=== PATIENT | female | born 1995 | race Caucasian/White ===

== ENCOUNTER 2024-06-12 04:28 | Inpatient (IN) ==
[2024-06-12] MEDS ORDERED: LIDOCAINE 1% LOCAL 20 ML VIAL INFIL PRN (05:14)
[2024-06-12] MEDS ORDERED: OXYTOCIN 30 UNITS/NSS 30 UNITS/500 ML BAG IV PRN (05:14)
[2024-06-12 05:58] LABS: Hematocrit (blood only) 33.4 % (37.0-47.0); Mean Corpuscular Hemoglobin 30.1 pg (25.0-34.0); Mean Corpuscular Hgb Conc 32.9 g/dL (32.0-36.0); Mean Corpuscular Volume 91.3 fL (80.0-100.0); Mean Platelet Volume 9.4 fL (9.4-12.4); Platelet Count 179 K/uL (130-400); RDW Coefficient of Variation 13.6 % (11.5-14.5); Red Blood Count 3.66 M/uL (4.20-5.40); White Blood Count 8.36 K/ul (4.8-10.8)
--- NOTE | 2024-06-12 08:10 | Anesthesiology Consultation ---
Date of Service June 12, 2024 Assessment & Plan (1) Encounter for pre-operative examination: Chart Review Chart Review: Acceptable Risk for Labor Epidural History Height/Weight Height: 5 ft 6 in Weight: 90.718 kg Allergies Allergy/AdvReac Type Severity Reaction Status Date / Time No Known Allergies Allergy Verified 06/12/24 04:56 Medications Home Medications Medication Instructions Recorded Confirmed Last Taken 21-iron fu-folic acid 1 tab PO DAILY 11/12/23 06/12/24 06/11/24 [ Complete] acetone (urine) test (Ketone Urine #50 ea 12/30/23 06/07/24 Unknown Test strips) blood sugar diagnostic (OneTouch #150 ea 12/30/23 06/07/24 Unknown Verio test strips) blood-glucose meter (OneTouch #1 ea 12/30/23 06/07/24 Unknown Verio Reflect Meter) lancets 33 gauge (OneTouch Delica #150 ea 12/30/23 06/07/24 Unknown Plus Lancet) Past Medical History Medical History (Updated 06/12/24 @ 08:11 by Jasper Jha MD) Gestational diabetes No significant past medical history Varicella vaccination Past Family History Family History Aunt Breast cancer Diabetes Denies family history of Ovarian cancer Colorectal cancer Past Surgical History Surgical History (Updated 06/12/24 @ 08:11 by Jasper Jha MD) No significant past surgical history Social History Smoking Status: Never smoker Do You Dip or Chew Tobacco: No Hx Alcohol Use: No Hx Substance Use: No Physical Exam Vital Signs Last Vital Signs Temp 36.8 C 06/12/24 07:10 Pulse 83 06/12/24 07:06 Resp 18 06/12/24 07:10 BP 123/72 06/12/24 07:06 Testing Laboratory Results 06/12/24 05:31
[2024-06-12] MEDS: LACTATED RINGER'S 1,000 ML IV PRN (08:12)
--- NOTE | 2024-06-12 08:12 | Labor Progress Brief Note ---
Date of Service June 12, 2024 Subjective Has been ambulating, much more intense contractions now. Tearful because she wants an epidural and feels like this means "defeat." Assessment & Plan (1) Normal labor: Plan: Epidural requested. Laboring spontaneously after SROM. Counseled/comforted about normality of requesting anesthesia for delivery and that this does not diminish the achievement of having the baby at all. Admission and Anticipated Discharge Date Admission Date: June 12, 2024 Physical Exam Genitourinary: 8/100/0 Clear fluid FHT Cat 1 [place] Q2m Results & Data Vital Signs (Past 12 Hours) Vital Signs Temp Pulse Resp BP 06/12/24 07:10 98.2 F 18 06/12/24 07:06 83 123/72 06/12/24 04:57 98.8 F 77 18 124/74 Coding Level of Care Code None Diagnoses Normal labor O80; Z37.9
[2024-06-12] MEDS: fentaNYL citrate PF 100 MCG/2 ML VIAL ONE (08:34)
[2024-06-12] MEDS: LIDOCAINE 2%/EPINEPHRINE 1:200,000 20 ML PF ONE (08:34)
[2024-06-12] MEDS: BUPIVACAINE 0.25% PF 30 ML VIAL ONE (08:34)
[2024-06-12] MEDS: fentANYL 2 MCG/ML BUPIVacaine 0.125%-NSS 100ML BAG ONE (08:35)
[2024-06-12] MEDS ORDERED: ePHEDrine sulfate 50 MG/ML AMP IV PRN (08:35)
[2024-06-12] MEDS ORDERED: NALOXONE HCL 1 MG in SODIUM CHLORIDE 0.9% 1,000 ML IV PRN (08:35)
[2024-06-12] MEDS ORDERED: fentaNYL citrate PF 100 MCG/2 ML VIAL EPI PRN (08:35)
[2024-06-12] MEDS ORDERED: ONDANSETRON INJ 2 MG/ML 2 ML VIAL IV PRN (08:35)
[2024-06-12] MEDS ORDERED: ROPIVACAINE 0.5% PF 5 MG/ML 20 ML VIAL EPI PRN (08:35)
[2024-06-12] MEDS ORDERED: BUPIVACAINE 0.25% PF 30 ML VIAL EPI PRN (08:35)
[2024-06-12] MEDS ORDERED: LIDOCAINE 2% MPF LOCAL 5 ML VIAL EPI PRN (08:35)
[2024-06-12] MEDS ORDERED: SODIUM CHLORIDE 0.9% PF INJ 10 ML VIAL EPI PRN (08:35)
[2024-06-12] MEDS ORDERED: fentANYL 2 MCG/ML BUPIVacaine 0.125%-NSS 100ML BAG EPI PRN (08:35)
[2024-06-12] MEDS ORDERED: NALOXONE HCL 0.4 MG/1 ML VIAL/CARP IV PRN (08:35)
--- NOTE | 2024-06-12 09:19 | Communication Note ---
Date of Service: June 12, 2024 Pt resting comfortably with epidural. FHTs categ 1, TOCO q2 pt aware i am assuming care. recheck cx when appropriate.
[2024-06-12] MEDS: OXYTOCIN 30 UNITS/NSS 30 UNITS/500 ML BAG IV PRN (10:45)
--- NOTE | 2024-06-12 10:58 | Delivery Summary ---
Vaginal Delivery Summary Date of Service June 12, 2024 Vaginal Delivery Summary and 2nd Degree LAC The patient dilated to complete and pushed to deliver a viable male infant Apgars 8 and 9 via over 2nd degree perineal laceration. Mouth and nose bulb suctioned at perineum. Shoulders and body delivered with ease. Infant was vigorous and crying at . Cord clamped at 36 seconds of life and infant to maternal abdomen where the cord was then doubly clamped and cut. Placenta delivered spontaneously and intact, three-vessel cord. Hemostasis achieved with dilute pitocin and uterine massage. Cervix and sulci intact. Laceration repaired in layers in routine fashion with 3-0 vicryl. QBL 171cc. Mother and baby stable in recovery. [facility] Vaginal Delivery Charge Delivery Type Details: and 2nd Degree LAC
[2024-06-12] MEDS ORDERED: HYDROCORTISONE ACETATE 25 MG SUPP PR PRN (11:02)
[2024-06-12] MEDS ORDERED: oxyCODONE/ACETAMINOPHEN 5mg/325mg TAB PO PRN (11:02)
[2024-06-12] MEDS ORDERED: ACETAMINOPHEN 325 MG TAB PO PRN (11:02)
[2024-06-12] MEDS: ePHEDrine sulfate 50 MG/ML AMP ONE (11:06)
[2024-06-12] MEDS: SODIUM CHLORIDE 0.9% PF INJ 10 ML VIAL ONE (11:06)
[2024-06-12] MEDS: OXYTOCIN 20 UNITS/LR 1,002 ML IV SCH (11:16)
[2024-06-12] MEDS: DIPHTHER/TETAN/PERTUS Vaccine (Tdap, Adol/Adult) 0.5mL IM ONE (13:59)
[2024-06-12] MEDS: BENZOCAINE 20% SPRY 85 APPLN/85 GM CAN EXT PRN (14:13)
[2024-06-12] MEDS: IBUPROFEN 600 MG TAB PO PRN (14:13)
[2024-06-12] MEDS: DOCUSATE SODIUM 100 MG CAP PO SCH (20:10)
[2024-06-12 21:39] VITALS: TEMP 98.4
[2024-06-12] MEDS: BUPIVACAINE 0.25% PF 30 ML VIAL EPI STA (22:23)
[2024-06-12] MEDS: LIDOCAINE 2%/EPINEPHRINE 1:200,000 20 ML PF EPI STA (22:23)
[2024-06-12] MEDS: SODIUM CHLORIDE 0.9% PF INJ 10 ML VIAL EPI STA (22:23)
[2024-06-12] MEDS: fentaNYL citrate PF 100 MCG/2 ML VIAL EPI STA (22:23)
--- NOTE | 2024-06-13 06:44 | Obstetrical Progress Note ---
Date of Service June 13, 2024 Assessment & Plan (1) Encounter for care and examination after delivery: Plan stable, desires dc home, instructions reviewed. breast/Rhpos/RI. f/u 6 wk pp check. Day #:: 1 Subjective Ambulation: ambulating normally Voiding: no voiding problems Diet Tolerance:: regular diet Lochia:: Small Feeding Type:: breast feeding doing well, desires dc home Constitutional: + as per Subjective / HPI Physical Exam Constitutional WD/WN, vitals as above Respiratory normal respiratory effort, lungs clear to auscultation Cardiovascular Rate/Rhythm: regular rate and regular rhythm Gastrointestinal (Abdomen) Inspection/Auscultation: abdomen normal to inspection Percussion/Palpation: abdomen soft Fundus firm 2cm down Musculoskeletal nt calves no edema Neurologic grossly normal Psychiatric A+Ox3, euthymic affect Results & Data Vital Signs (Past 12 Hours) Vital Signs Temp Pulse Resp BP Pulse Ox O2 Del Method 06/13/24 04:05 98.4 F 77 18 112/74 98 Room Air 06/12/24 23:30 98.4 F 63 16 112/73 99 Room Air 06/12/24 19:40 98.4 F 75 18 121/77 98 Room Air
[2024-06-13 08:22] VITALS: BP 108/67; PULSE 69; RESP 16; O2SAT 99
[2024-06-13] MEDS: PRENATAL VITAMIN 1 TAB PO SCH (08:36)
[2024-06-13] MEDS ORDERED: bisacodyL 5 MG TABEC PO SCH (20:00)
--- NOTE | 2024-06-16 06:16 | Coding Query ---
CODING QUERY To promote full compliance with coding requirements relating to patient care, provider participation is requested in all cases of thread twister uncertainty. Please assist us with the question(s) below: Coding Question(s): There was no documentation in notes as to how many weeks of gestation had been complete for this pt. Please document below. Physician's Response(s): 3rd trimester. Thank you Stacey Reynoso Principal Diagnosis: "that condition established after study, to be chiefly responsible for occasioning the admission of the patient to the hospital for care." Co-Existing Principal Diagnosis: "when two or more diagnoses equally meet the criteria for principal diagnosis as determined by the circumstances of admission, diagnostic work up, and/or therapy provided, and the Alphabetic Index, Tabular List, or another coding guideline does not provide sequencing direction, any one of the diagnoses may be sequenced first." "When the physician has documented what appears to be a current diagnosis in the body of the record, but has not included the diagnosis in the final diagnostic statement, the physician should be asked whether the diagnosis should be added." (Source [facility]oding [facility] 2 QTR90. p3-4) JOSE ANGEL
== END 2024-06-13 14:17 | disposition home or self-care (01) | DRG 807 ==
LOC: OPB 04:28 → 4S1 04:33 → 4E2 13:45